=== PATIENT | male | born 1965 | race Caucasian/White ===

== ENCOUNTER 2020-06-25 11:48 | Emergency (ER) | payer BC ==
[2020-06-25] MEDS ORDERED: Oxymetazoline 0.05% Nasal Spray 30 ML Bottle NAS ONE (12:04)
[2020-06-25 12:35] LABS: ANION GAP 7.7 mEq/L (7-13); CHLORIDE,CL 102 mmol/L (98-107); SODIUM,NA 136 mmol/L (136-145)
--- NOTE | 2020-06-25 12:50 | EDM.PDOC ---
ED HPI GENERAL MEDICAL PROBLEM - General Chief Complaint: ENT Problem Time Seen by Provider: 06/25/20 12:30 Source of Information: Reports: Patient, EMS, RN History Limitations: Reports: No Limitations - History of Present Illness INITIAL COMMENTS - FREE TEXT/NARRATIVE: ED with report of intermittent nose bleed since Friday. ANIMAL SERVICES OFFICER started both nares. EMS noted EBL 500ml. Merocel packing on scene with improvement. No frequent use of aspirin or ibuprofen. No prior hx. Treatments ANIMAL SERVICES OFFICER: Reports: Other (see below) Other Treatments ANIMAL SERVICES OFFICER: rhinorockets placed by EMS in [place] nares - Related Data Allergies Allergy/AdvReac Type Severity Reaction Status Date / Time No Known Allergies Allergy Verified 06/25/20 12:14 Home Meds: Home Meds . [No Known Home Meds] 06/25/20 [History] Past Medical History HEENT History: Reports: Impaired Vision Cardiovascular History: Reports: None Respiratory History: Reports: None Gastrointestinal History: Reports: None Genitourinary History: Reports: None Musculoskeletal History: Reports: None Neurological History: Reports: None Psychiatric History: Reports: None Endocrine/Metabolic History: Reports: None Hematologic History: Reports: None Immunologic History: Reports: None Oncologic (Cancer) History: Reports: None Dermatologic History: Reports: None - Infectious Disease History Infectious Disease History: Reports: None - Past Surgical History Head Surgeries/Procedures: Reports: None HEENT Surgical History: Reports: Eye Surgery, Other (See Below) Other HEENT Surgeries/Procedures: legally blind in right eye Social & Family History - Family History Family Medical History: No Pertinent Family History - Tobacco Use Tobacco Use Status *Q: Current Every Day Tobacco User Years of Tobacco use: 30 Packs/Tins Daily: 1 - Caffeine Use Caffeine Use: Reports: Soda - Alcohol Use Number of Drinks Per Day: 3 - Recreational Drug Use Recreational Drug Use: No ED ROS ENT - Review of Systems Review Of Systems: Comprehensive ROS is negative, except as noted in HPI. ED EXAM, ENT - Physical Exam Exam: See Below Exam Limited By: No Limitations General Appearance: Alert, Mild Distress Eye Exam: Left Eye: EOMI (blind right) Ears: Normal External Exam, Hearing Grossly Normal Nose: Active Bleeding (bilateral dried, scant posterior right) Mouth/Throat: Normal Inspection Head: Atraumatic, Normocephalic Neck: Full Range of Motion Respiratory/Chest: No Respiratory Distress Cardiovascular: Regular Rate, Rhythm Back: Full Range of Motion Extremities: Normal Inspection, Normal Range of Motion Neurological: Alert, Oriented, Normal Cognition Psychiatric: Normal Affect Skin: Warm, Dry, Intact, Normal Color Course - Vital Signs Last Recorded V/S: Last Vital Signs Temp 97.4 F 06/25/20 12:09 Pulse 80 06/25/20 12:09 Resp 18 06/25/20 12:09 BP 143/76 H 06/25/20 12:09 Pulse Ox 96 06/25/20 12:09 - Orders/Labs/Meds Labs: Laboratory Tests 06/25/20 06/25/20 06/25/20 Range/Units 12:10 12:10 12:10 WBC 9.4 (5.0-10.0) 10^3/uL RBC 4.66 (4.6-6.2) 10^6/uL Hgb 14.3 (14.0-18.0) g/dL Hct 41.3 (40.0-54.0) % MCV 88.6 (80-100) fL MCH 30.7 (27.0-34.0) pg MCHC 34.6 (33.0-35.0) g/dL Plt Count 136 L (150-450) 10^3/uL Neut % (Auto) 71.8 (42.2-75.2) % Lymph % (Auto) 20.1 L (20.5-50.1) % [place] % (Auto) 5.6 (2-8) % Eos % (Auto) 2.0 (1.0-3.0) % Baso % (Auto) 0.5 (0.0-1.0) % PT 10.0 (9.0-12.0) SEC INR 1.1 (0.9-1.2) Sodium 136 (136-145) mmol/L Potassium 3.7 (3.5-5.1) mmol/L Chloride 102 (98-107) mmol/L Carbon Dioxide 30 (21-32) mmol/L Anion Gap 7.7 (7-13) mEq/L BUN 17 (7-18) mg/dL Creatinine 1.23 (0.70-1.30) mg/dL Est Cr Clr Drug Dosing 65.65 mL/min Estimated GFR (MDRD) > 60 BUN/Creatinine Ratio 13.8 (No establ ref range) Glucose 163 H (74-99) mg/dL Calcium 8.6 (8.5-10.1) mg/dL Total Bilirubin 0.4 (0.2-1.0) mg/dL AST 26 (15-37) U/L ALT 40 (16-63) U/L Alkaline Phosphatase 70 (46-116) U/L Total Protein 7.3 (6.4-8.2) g/dL Albumin 4.1 (3.4-5.0) g/dL Globulin 3.2 Albumin/Globulin Ratio 1.3 Meds: Medications Discontinued Medications Generic Name Dose Route Start Last Admin Trade Name Darionq PRN Reason Stop Dose Admin Hydrocodone Bitart/Acetaminophen 1 tab 06/25/20 13:08 06/25/20 13:19 Helen 325-10 Mg PO 06/25/20 13:09 1 tab ONETIME ONE Administration Oxymetazoline HCl 2 ml 06/25/20 12:04 06/25/20 13:20 Nasal Decongestant Sheridan ALEA 06/25/20 12:05 2 ml ONETIME ONE Administration - Re-Assessments/Exams Free Text/Narrative Re-Assessment/Exam: Continued bleeding right nare, EMS packing removed on right replaced with 5.5 Rhino rocket. Bleeding stopped. patient unable to tolerate. removed. Bleeding resumed left nare , Afrin spray, Merocel replaced. 1348 bleeding stopped. Departure - Departure Time of Disposition: 13:28 Disposition: Home, Self-Care 01 Condition: Good Clinical Impression: Epistaxis - Discharge Information *PRESCRIPTION DRUG MONITORING PROGRAM REVIEWED*: No *COPY OF PRESCRIPTION DRUG MONITORING REPORT IN PATIENT DOMINIQUE: No Instructions: Nosebleed, [id number] Forms: ED Department Discharge Additional Instructions: light diet avoid bending over keflex 500mg twice daily follow up with primary care tomorrow urgent follow up if bleeding resumes and unable to stop with use of afrin spray and pressure norco 10/325 one every 6 hours s needed for pain Sepsis Event Note (ED) - Evaluation Sepsis Screening Result: No Definite Risk - Focused Exam Vital Signs: Vital Signs Temp Pulse Resp BP Pulse Ox 06/25/20 12:09 97.4 F 80 18 143/76 H 96
[2020-06-25] MEDS ORDERED: Acetaminophen/HYDROcodone 325-10 MG Tab PO ONE (13:08)
== END 2020-06-25 14:13 | disposition home or self-care (01) ==
LOC: DL.ED 11:48
DX: R04.0 Epistaxis (principal); Z72.0 Tobacco use
CPT/HCPCS: 30903; 30905; 36415; 80053; 85025; 85610; 99283; 99284; A9270

== ENCOUNTER 2020-06-25 15:02 | Emergency (ER) | payer BC | END 2020-06-25 16:40 | disposition home or self-care (01) | LOC: DL.ED 15:02 | DX: Z53.21 Procedure and treatment not carried out due to patient leaving prior to being seen by health care provider (principal) ==

== ENCOUNTER 2020-06-25 18:31 | Emergency (ER) | payer BC ==
--- NOTE | 2020-06-25 19:28 | EDM.PDOC ---
ED HPI GENERAL MEDICAL PROBLEM - General Chief Complaint: ENT Problem Stated Complaint: AMBULANCE Time Seen by Provider: 06/25/20 19:23 Source of Information: Reports: Patient History Limitations: Reports: No Limitations - History of Present Illness INITIAL COMMENTS - FREE TEXT/NARRATIVE: upset pt stating this is his 3 rd visit here for same issue of nose bleed and his is an RN and demand something else need to be done. explained to pt re; necessity for transf to upper level of care for ENT consult. pt wants that to be done. Nursing note: pt states that this is his 3rd visit to the ED, pt had rhino rocket placed in right nare pt was then discharged, pt then went home and took it out nose began bleeding after that, pt then returned to the ED and when he got here nose had quit bleeding, states that right after he left nose began bleeding, states that EMT placed packing in both nares on the way to the hospital, states that since these were placed he has not had any more bleeding [ End ] - Related Data Allergies Allergy/AdvReac Type Severity Reaction Status Date / Time No Known Allergies Allergy Verified 06/25/20 12:14 Home Meds: Home Meds . [No Known Home Meds] 06/25/20 [History] Past Medical History HEENT History: Reports: Impaired Vision Cardiovascular History: Reports: None Respiratory History: Reports: None Gastrointestinal History: Reports: None Genitourinary History: Reports: None Musculoskeletal History: Reports: None Neurological History: Reports: None Psychiatric History: Reports: None Endocrine/Metabolic History: Reports: None Hematologic History: Reports: None Immunologic History: Reports: None Oncologic (Cancer) History: Reports: None Dermatologic History: Reports: None - Infectious Disease History Infectious Disease History: Reports: None - Past Surgical History Head Surgeries/Procedures: Reports: None HEENT Surgical History: Reports: Eye Surgery, Other (See Below) Other HEENT Surgeries/Procedures: legally blind in right eye Social & Family History - Family History Family Medical History: No Pertinent Family History - Tobacco Use Tobacco Use Status *Q: Current Every Day Tobacco User Years of Tobacco use: 30 Packs/Tins Daily: 1 Second Hand Smoke Exposure: Yes - Caffeine Use Caffeine Use: Reports: None - Recreational Drug Use Recreational Drug Use: No ED ROS ENT - Review of Systems Review Of Systems: Comprehensive ROS is negative, except as noted in HPI. ED EXAM, ENT - Physical Exam Exam: See Below Exam Limited By: No Limitations General Appearance: Alert, WD/WN, Mild Distress, Other (angry upset) Nose: Other (bilateral nasal packing in place right with minimal oozing.) Mouth/Throat: Other (oropharyn minimal oozing) Head: Atraumatic Neck: Non-Tender, Full Range of Motion Respiratory/Chest: No Respiratory Distress Cardiovascular: Regular Rate, Rhythm GI/Abdominal: Soft, Non-Tender (Male) Exam: Deferred Rectal (Males) Exam: Deferred Back: Full Range of Motion Extremities: Normal Range of Motion Neurological: Alert, Oriented, Normal Cognition, Normal Gait, No Motor/Sensory Deficits Psychiatric: Other (upset) Skin: Warm, Dry, Normal Color Lymphatic: No Adenopathy Course - Vital Signs Last Recorded V/S: Last Vital Signs Temp 36.8 C 06/25/20 19:04 Pulse 105 H 06/25/20 19:04 Resp 18 06/25/20 19:04 BP 112/82 06/25/20 19:04 Pulse Ox 98 06/25/20 19:04 - Orders/Labs/Meds Orders: Active Orders 24 hr Category Date Time Status Sodium Chloride 0.9% [Normal Saline] 1,000 ml Med 06/25/20 22:20 Ordered IV .BOLUS Medication Orders Sodium Chloride (Normal Saline) 1,000 mls @ 999 mls/hr IV .BOLUS ONE Stop: 06/25/20 23:20 Labs: Laboratory Tests 06/25/20 06/25/20 Range/Units 19:55 19:55 WBC 13.4 H (5.0-10.0) 10^3/uL RBC 4.05 L (4.6-6.2) 10^6/uL Hgb 12.3 L D (14.0-18.0) g/dL Hct 36.0 L (40.0-54.0) % MCV 88.9 (80-100) fL MCH 30.4 (27.0-34.0) pg MCHC 34.2 (33.0-35.0) g/dL Plt Count 158 (150-450) 10^3/uL Neut % (Auto) 78.9 H (42.2-75.2) % Lymph % (Auto) 13.2 L (20.5-50.1) % [place] % (Auto) 6.7 (2-8) % Eos % (Auto) 0.8 L (1.0-3.0) % Baso % (Auto) 0.4 (0.0-1.0) % Sodium 141 (136-145) mmol/L Potassium 4.1 (3.5-5.1) mmol/L Chloride 105 (98-107) mmol/L Carbon Dioxide 28 (21-32) mmol/L Anion Gap 12.1 (7-13) mEq/L BUN 24 H (7-18) mg/dL Creatinine 1.27 (0.70-1.30) mg/dL Est Cr Clr Drug Dosing 63.58 mL/min Estimated GFR (MDRD) 59 BUN/Creatinine Ratio 18.9 (No establ ref range) Glucose 163 H (74-99) mg/dL Calcium 8.6 (8.5-10.1) mg/dL Total Bilirubin 0.3 (0.2-1.0) mg/dL AST 24 (15-37) U/L ALT 35 (16-63) U/L Alkaline Phosphatase 62 (46-116) U/L Total Protein 7.0 (6.4-8.2) g/dL Albumin 3.9 (3.4-5.0) g/dL Globulin 3.1 Albumin/Globulin Ratio 1.3 Meds: Medications Generic Name Dose Route Start Last Admin Trade Name Freq PRN Reason Stop Dose Admin Sodium Chloride 1,000 mls @ 999 mls/hr 06/25/20 22:20 Normal Saline IV 06/25/20 23:20 .BOLUS ONE - Re-Assessments/Exams Free Text/Narrative Re-Assessment/Exam: 06/25/20 20:[address] Kline ENT @ [facility] who rec' a repeat explanation to pt re' necessity of leaving the nasal packing in place but for 5 days with ENT follow up. But did state [facility] ER will be happy to re-eval pt but to warn pt the treatment will be nasal packing. 06/25/20 22:27 re-exam; BP lying 109/66, sitting 94/63, standing 85/60. orophayn minimal oozing. Dr Arciniega @ [facility] kindly accepted pt. Departure - Departure Time of Disposition: 22:28 Disposition: DC/Tfer to [facility] 02 Clinical Impression: Epistaxis, Postural hypotension Anemia Qualifiers: Anemia type: unspecified type Qualified Code(s): D64.9 - Anemia, unspecified - Discharge Information Forms: Interfacility Transfer [facility] Sepsis Event Note (ED) - Evaluation Sepsis Screening Result: No Definite Risk - Focused Exam Vital Signs: Vital Signs Temp Pulse Resp BP Pulse Ox 06/25/20 19:04 36.8 C 105 H 18 112/82 98 - My Orders Last 24 Hours: My Active Orders 06/25/20 22:20 Sodium Chloride 0.9% [Normal Saline] 1,000 ml IV .BOLUS - Assessment/Plan Last 24 Hours: My Active Orders 06/25/20 22:20 Sodium Chloride 0.9% [Normal Saline] 1,000 ml IV .BOLUS
[2020-06-25 20:22] LABS: ANION GAP 12.1 mEq/L (7-13)
[2020-06-25] MEDS ORDERED: Sodium Chloride 0.9% 1,000 ML IV ONE (22:20)
== END 2020-06-25 23:06 ==
LOC: DL.ED 18:31
DX: R04.0 Epistaxis (principal); I95.1 Orthostatic hypotension; D64.9 Anemia, unspecified; Z72.0 Tobacco use
CPT/HCPCS: 36415; 80053; 85025; 99285; J7030